=== PATIENT | male | born 1955 | race Caucasian/White ===

== ENCOUNTER → 2016-06-21 | Day surgery (SDC) | payer BC ==
[~2016-06-21] MED LIST: ACETAMINOPHEN/HYDROcodone 325 MG/5 MG TAB ONE; BUPIVACAINE/EPINEPHRINE 0.5% PF 30 ML VIAL ONE; BUPR-197 PO; DIPH1TAB36 PO; HYDR-3580 PO; KETOROLAC TROMETHAMINE 30 MG/ML (IVP) VIAL IV PUSH ONE; LACTATED RINGER'S 1000 ML INJ 1,000 ML ONE; MELA3CAP2 PO; MIDAZOLAM HCL 2 MG/2 ML VIAL ONE; NITR.4 SL; ONDANSETRON HCL 4 MG/2 ML VIAL IV PUSH ONE; PROPOFOL 200 MG/20 ML AMP IV ONE; PROT40TA PO; ST J81CH PO; [UNRECOGNIZED DRUG - OTHER] PO; ceFAZolin 2 GM PREMIX 50 ML ONE
--- NOTE | 2016-06-25 15:14 | MP ---
cc: FROILAN PADRON M.D. DATE OF SURGERY: 06/21/2016 PREOPERATIVE DIAGNOSIS Right knee medial meniscus tear. POSTOPERATIVE DIAGNOSIS Right knee medial meniscus tear. PROCEDURE Right knee arthroscopic partial medial meniscectomy. ANESTHESIA General. SURGEON Froilan Padron MD ESTIMATED BLOOD LOSS Minimal. COMPLICATIONS None known. INDICATION Mahendra Mello is a 61-year-old male with persistent medial sided knee pain to his right knee which has failed to respond to conservative measures. He had MRI scan which shows a complex tear of the medial meniscus as well as chondromalacia. He now presents for arthroscopic surgery. Risks, benefits were thoroughly discussed and no guarantees were made. PROCEDURE After general anesthesia the right lower extremity was draped and prepped in the usual sterile fashion. IV antibiotics were given. Time-out was completed. Inferolateral portal was made. Blunt trocar was used to introduce the cannula. The knee insufflated with saline. Patellofemoral joint was visualized and appeared normal. Notch appeared normal, normal-appearing ACL. The lateral compartment showed normal appearance of the lateral meniscus and lateral femoral condyle. Medial compartment showed chondromalacia of weightbearing portion of medial femoral condyle and a complex unstable tear involving the posterior horn and the medial meniscus representing probably 60-70% of the depth of the meniscus with the apex of the tear being at the mid posterior horn but also significant involvement all the way to the midbody of the medial meniscus where a portion of the meniscus was flipped inferiorly along the joint line. We proceeded with arthroscopic partial medial meniscectomy with basket forceps, arthroscopic shaver. There was also noted to be some slight amount of fraying on the medial edge of his ACL and this was trimmed and electrocautery was used. We smoothed the medial femoral condyle with the shaver turned 90 degrees to the face of the condyle and follow-up photograph shows the results. It should be noted that we switched over a switching stick and came in from the opposite angle, smoothed and fine-tuned and make the transition from the anterior horn to the body of the posterior horn and removed the unstable undersurface fibers at the midbody. Repeat diagnostic arthroscopy revealed no loose bodies. The arthroscopic equipment was removed. Marcaine had been injected about the portals. Steri-Strips were applied. Sterile dressing was applied. Kingsley wrap was applied. The patient was awoken and returned to the recovery room in stable condition. MD DIEGO Sheikh/BERNA /11:23 AM /3:05 PM
== END | disposition home or self-care (01) ==
LOC: ESDC 08:51
PROVIDERS: ATTEND Orthopaedic Surgery Sports Medicine
DX: S83.231A Complex tear of medial meniscus, current injury, right knee, initial encounter (principal)
CPT/HCPCS: 01400; 29881; J0690; J1885; J2250; J2405; J3010; J7120

== ENCOUNTER 2017-06-30 20:01 | Observation (INO) | payer BC ==
[~2017-06-30] VITALS: Ht 180.3 cm; Wt 96.0 kg
[~2017-06-30 20:01] MED LIST changes: -ACETAMINOPHEN/HYDROcodone 325 MG/5 MG TAB ONE; +ASPI81TA23 PO; +ATOR80TA45 PO; -BUPIVACAINE/EPINEPHRINE 0.5% PF 30 ML VIAL ONE; -BUPR-197 PO; +BUPR150CR PO; +CENTCHW4 CHEW; -DIPH1TAB36 PO; -HYDR-3580 PO; -KETOROLAC TROMETHAMINE 30 MG/ML (IVP) VIAL IV PUSH ONE; -LACTATED RINGER'S 1000 ML INJ 1,000 ML ONE; +LYSI500T PO; +MAGN500T5 PO; +MEDR4PAK PO; +MELA1TAB18 PO; -MELA3CAP2 PO; -MIDAZOLAM HCL 2 MG/2 ML VIAL ONE; +NAPR220C22 P-ARTICULR; -NITR.4 SL; -ONDANSETRON HCL 4 MG/2 ML VIAL IV PUSH ONE; -PROPOFOL 200 MG/20 ML AMP IV ONE; -PROT40TA PO; -ST J81CH PO; +TEMA30CA PO; -[UNRECOGNIZED DRUG - OTHER] PO; -ceFAZolin 2 GM PREMIX 50 ML ONE
[2017-06-30 23:30] VITALS: BP 129/81; PULSE 71; RESP 17; TEMP 98.2; O2SAT 97
[2017-07-01 00:49] LABS: TROPONIN I LESS THAN 0.02 NG/ML (0.02-0.05)
[2017-07-01] MEDS ORDERED: ACETAMINOPHEN 500 MG CPLT PO PRN (01:00)
[2017-07-01] MEDS ORDERED: ONDANSETRON HCL 4 MG/2 ML VIAL IV PUSH PRN (01:00)
[2017-07-01 01:50] VITALS: BP 120/68; PULSE 65; RESP 18; TEMP 98.2; O2SAT 95
[2017-07-01 02:07] VITALS: PULSE 64
[2017-07-01 04:33] VITALS: BP 120/75; PULSE 67; RESP 16; TEMP 98; O2SAT 96
[2017-07-01 07:09] VITALS: BP 110/78; PULSE 61; RESP 16; TEMP 97.8; O2SAT 97
[2017-07-01 07:30] VITALS: PULSE 66
[2017-07-01] MEDS ORDERED: ASPIRIN 325 MG TAB PO SCH (09:00)
[2017-07-01] MEDS ORDERED: TEMAZEPAM 15 MG CAP PO PRN (09:00)
[2017-07-01] MEDS ORDERED: buPROPion HCL 150 MG SUSTAINED RELEASE TAB PO SCH (09:00)
--- NOTE | 2017-07-01 10:07 | HHI.HP ---
[facility] Primary Care Physician Eliot Smith MD Chief Complaint Chest pain History of Present Illness This is a 62-year-old male with history of CAD with a four-vessel bypass 2008 that presents to ED with a complaint of discomfort in his chest. Patient states he had an uncomfortable feeling that began Saturday evening. Describes as a dull pain. States that essentially has been there constantly. Still there. Worsened by nothing. Aleve did seem to help a little bit. Denies shortness of breath, nausea, or diaphoresis. Denies shortness of breath, nausea , or diaphoresis with the symptoms. He points to left lateral/lower chest wall to indicate where the discomfort is present. States he had a similar discomfort but a little bit lower a couple months ago and at that time he was told that he had diverticulitis. Cannot recall any recent stress testing. Upon reviewing records he had a nonischemic Lexiscan August 2013. He does not believe he has had one since. Last time he saw his interpreter Dr. Taylor was between 1-1/2-2 years ago. Voices compliance with his medications. States that the symptoms are not similar to the symptoms he had when needing bypass. At that time he states he had heartburn symptoms and was very fatigued. Review of Systems General: Patient denies fevers, chills, and recent travel. HEENT: Patient denies headache, sore throat, difficulty swallowing. Cardiovascular: Has the chest discomfort as mentioned above. Denies sensation of heart beating rapidly or irregularly. No syncope. Denies diaphoresis. Respiratory: Denies shortness of breath or inspirational chest discomfort. Denies coughing wheezing or hemoptysis. GI: Patient denies nausea, vomiting, diarrhea, abdominal pain, bloody stools. Musculoskeletal: Patient denies joint pain or edema. Denies calf pain or edema. Neurovascular: Patient denies numbness, tingling, weakness in extremities. Denies headache. Endocrine: Denies polyuria and polydipsia. Hematologic: Denies easy bruising. Skin: Denies rash or itching. Past Family Social History Allergies: Coded Allergies: No Known Allergies (Verified Allergy, Unknown, 07/01/17) Past Medical History CAD with a four-vessel bypass 2008. Hyperlipidemia, depression, ischemic cardiomyopathy, diverticulitis 2 months ago. Denies diabetes and hypertension. Past Surgical History Four-vessel bypass 2008. Mandibular surgery. Appendectomy. Reported Medications Reported Meds & Active Scripts Active Reported Aleve (Naproxen Sodium) 220 Mg Capsule 220 Mg P-ARTICULR PRN Melatonin 10 Mg-1 Mg Tab 10 Mg PO HS PRN Aspirin EC (Aspirin) 81 Mg Tabdr 81 Mg PO DAILY Centrum (Multiple Vitamins W/ Minerals) 1 Chew 1 Tab CHEW DAILY Magnesium Gluconate 27 Mg (500 Mg) Tab 500 Mg PO DAILY l-Lysine (Lysine HCl) 500 Mg Tab 1,000 Mg PO QOD Temazepam 30 Mg Cap 30 Mg PO HS PRN Wellbutrin SR 12 HR (Bupropion HCl) 150 Mg Tab 150 Mg PO Q12HR Atorvastatin (Atorvastatin Calcium) 80 Mg Tab 80 Mg PO HS Active Ordered Medications Current Medications Medications (Trade) Dose Ordered Sig/Jacinto Route Start Time Stop Time Status Last Admin (Tylenol) 500 mg Q4H PRN PO 07/01/17 01:00 (Zofran Inj) 4 mg Q6H PRN IV PUSH 07/01/17 01:00 (Lipitor) 80 mg HS PO 07/01/17 21:00 (Wellbutrin Sr) 150 mg Q12HR PO 07/01/17 09:00 07/01/17 09:06 (Restoril) 30 mg HS PRN PO 07/01/17 09:00 (Aspirin) 325 mg DAILY PO 07/01/17 09:00 07/01/17 09:05 Family History Both sisters have had a CABG. His parents had CAD as well. Physical Exam Vital Signs Vital Signs Date Time Temp Pulse Resp B/P (MAP) Pulse Ox O2 Delivery O2 Flow Rate FiO2 07/01/17 07:30 66 07/01/17 07:09 97.8 61 16 110/78 (89) 97 07/01/17 04:33 98.0 67 16 120/75 (90) 96 07/01/17 02:07 64 07/01/17 01:50 98.2 65 18 120/68 (85) 95 06/30/17 23:30 98.2 71 17 129/81 (97) 97 Physical Exam GENERAL: This is a well-nourished, well-developed patient, in no apparent distress. Patient speaks in clear complete sentences. Patient is pleasant. HEENT: Head is atraumatic and normocephalic. Neck is supple without lymphadenopathy and trachea is midline. No JVD or carotid bruits. CARDIOVASCULAR: Regular rate and rhythm without murmurs, gallops, or rubs. RESPIRATORY: Clear to auscultation. Breath sounds equal bilaterally. No wheezes , rales, or rhonchi. Chest wall is nontender. Well-healed scar over sternum from prior sternotomy. No use of accessory muscles. GASTROINTESTINAL: Abdomen is nontender, nondistended. Abdomen soft. No obvious pulsatile mass or bruit. No CVA tenderness. Strong femoral pulses bilaterally. Normal bowel sounds in all quadrants. MUSCULOSKELETAL: Patient is moving upper and lower extremities freely. No calf tenderness or edema, no Homans sign. Strong pulses in upper and lower extremities. NEUROLOGICAL: Patient is alert and oriented. Cranial nerves 2-12 are grossly intact. No focal deficits and speech is clear. SKIN: No rash and turgor is normal. Laboratory Laboratory Tests Test 07/01/17 00:15 Total Creatine Kinase 325 Creatine Kinase MB 2.5 Creatine Kinase MB % 0.8 Troponin I LESS THAN 0.02 Imaging Chest x-ray reveals nothing acute. There is evidence of prior sternotomy with sternal wires present. Course EKGs are sinus rhythm with nonspecific T-wave changes. No significant ST segment depressions or elevations. Caprini VTE Risk Assessment Caprini VTE Risk Assessment: Mod/High Risk (score >= 2) Caprini Risk Assessment Model Point Value = 1 Point Value = 2 Point Value = 3 Point Value = 5 Age 41-60 Minor surgery BMI > 25 kg/m2 Swollen legs Varicose veins or History of unexplained or recurrent spontaneous Oral contraceptives or hormone replacement Sepsis (< 1 month) Serious lung disease, including pneumonia (< 1 month) Abnormal pulmonary function Acute myocardial infarction Congestive heart failure (< 1 month) History of inflammatory bowel disease Medical patient at bed rest Age 61-74 Arthroscopic surgery Major open surgery (> 45 min) Laparoscopic surgery (> 45 min) Malignancy Confined to bed (> 72 hours) Immobilizing plaster cast Central venous access Age >= 75 History of VTE Family history of VTE Factor V Leiden Prothrombin [id number] Lupus anticoagulant Anticardiolipin antibodies Elevated serum homocysteine Heparin-induced thrombocytopenia Other congenital or acquired thrombophilia Stroke (< 1 month) Elective arthroplasty Hip, pelvis, or leg fracture Acute spinal cord injury (< 1 month) Prophylaxis Regimen Total Risk Factor Score Risk Level Prophylaxis Regimen 0-1 Low Early ambulation 2 Moderate Order ONE of the following: *Sequential Compression Device (SCD) *Heparin 5000 units SQ BID 3-4 Higher Order ONE of the following medications: *Heparin 5000 units SQ TID *Enoxaparin/Lovenox 40 mg SQ daily (WT < 150 kg, CrCl > 30 mL/min) *Enoxaparin/Lovenox 30 mg SQ daily (WT < 150 kg, CrCl > 10-29 mL/min) *Enoxaparin/Lovenox 30 mg SQ BID (WT < 150 kg, CrCl > 30 mL/min) AND/OR *Sequential Compression Device (SCD) 5 or more Highest Order ONE of the following medications: *Heparin 5000 units SQ TID (Preferred with Epidurals) *Enoxaparin/Lovenox 40 mg SQ daily (WT < 150 kg, CrCl > 30 mL/min) *Enoxaparin/Lovenox 30 mg SQ daily (WT < 150 kg, CrCl > 10-29 mL/min) *Enoxaparin/Lovenox 30 mg SQ BID (WT < 150 kg, CrCl > 30 mL/min) AND *Sequential Compression Device (SCD) Assessment and Plan Assessment and Plan * Chest pain: Patient has had serial cardiac enzymes and EKGs for ruling out purposes. He was seen by Dr. Rustam Carpenter of cardiology in the chest pain center. He has had no recent stress testing, patient will have a Lexiscan at this time and will be discharged home with a stress test is nonischemic with instructions to follow-up with his interpreter. He will notify his interpreter if stress test is ischemic. Patient to follow-up with his interpreter and PCP. Return to ED for interval issues. * CAD: We will reassess with stress testing. * Hyperlipidemia: Resume medication. He wants time. He is agreeable to this plan. Travon Salas Jul 01, 2017 10:07
[2017-07-01] MEDS ORDERED: REGADENOSON INJ 0.4 MG/5 ML SYR ONE (10:24)
[2017-07-01 12:33] VITALS: BP 127/70; PULSE 64; RESP 16; TEMP 96.8; O2SAT 98
--- NOTE | 2017-07-01 14:00 | RADRPT ---
EXAM DATE/TIME: 07/01/2017 10:15 [place] COMPARISON: No previous studies available for comparison. INDICATIONS : Chest pain. Angina. DOSE: 27.3 mCi Tc99m Myoview at stress. 8.7 mCi Tc99m Myoview at rest. 0.4 mg Lexiscan STRESS SYMPTOMS: Dyspnea and warmness. EJECTION FRACTION: 28% MEDICAL HISTORY : Myocardial infarction. Hypercholesterolemia. Hypertension. SURGICAL HISTORY : Appendectomy. CABG ENCOUNTER: Initial ACUITY: 1 day PAIN SCALE: 6/10 LOCATION: chest TECHNIQUE: The patient underwent pharmacologic stress with infusion of prescribed dose. Continuous ECG tracing was monitored during stress. Gated SPECT imaging was performed after stress and conventional SPECT i maging was performed at rest. The examination was performed on a SPECT/CT scanner, both attenuation and non-corrected datasets were reviewed. FINDINGS: The gated cineloop images demonstrate global hypokinesis as well as septal and apical akinesis. Left ventricular ejection fraction is calculated at 28%. Large fixed defects involve the anterior wall, se ptum, apex and lateral wall consistent with infarct in the LAD and LCx distributions. No reversible d efects to suggest ischemia are noted. CONCLUSION: 1. Large fixed defects involve the anterior wall, septum, apex and lateral wall consistent with infar ct in the LAD and LCx distributions. 2. Global hypokinesis as well as septal and apical akinesis. 3. Left ventricular ejection fraction equaling 28%. 4. No reversible defects to suggest ischemia. RISK CATEGORY: High risk (greater than 3% annual mortality rate). Angelito Byrd MD on July 01, 2017 at 13:54 Board Certified Radiologist. This report was verified electronically.
--- NOTE | 2017-07-01 14:32 | HHI.DCPOC ---
Discharge Care Plan Diagnosis: (1) Chest pain (2) CAD (coronary artery disease) (3) Hx of CABG (4) Cardiomyopathy (5) Hyperlipidemia Goals to Promote Your Health DISCUSS YOUR CARDIOMYOPATHY WITH YOUR STEEL SAMPLER. TAKING AN ANGELA INHIBITOR ( TYPE OF LOOD PRESSURE MEDICINE) MIGHT BENEFIT YOU. * To prevent worsening of your condition and complications * To maintain your health at the optimal level Directions to Meet Your Goals Take your medications as prescribed Follow your dietary instruction Follow activity as directed Keep your appointments as scheduled Take your immunizations and boosters as scheduled If your symptoms worsen call your PCP, if no PCP go to Urgent Care Center or Emergency Room Smoking is Dangerous to Your Health. Avoid second hand smoke Call the 24-hour hour crisis hotline for domestic abuse at Travon Salas Jul 01, 2017 14:32
--- NOTE | 2017-07-01 15:39 | EKG ---
Date Performed: 07/01/2017 Time Performed: 03:13:03 PTAGE: 62 years EKG: Sinus rhythm POSSIBLE RIGHT VENTRICULAR CONDUCTION DELAY ABNORMAL ECG PREVIOUS TRACING : 10/27/2013 18.52 Since previous tracing, no significant change noted DOCTOR: Rustam Carpenter Interpretating Date/Time 07/01/2017 15:38:36
--- NOTE | 2017-07-01 15:40 | EKG ---
Date Performed: 06/30/2017 Time Performed: 23:37:22 PTAGE: 62 years EKG: Sinus rhythm SEPTAL MYOCARDIAL INFARCTION ABNORMAL ECG INTERPRETATION BASED ON A DEFAULT AGE OF 40 YEARS NO PREVIOUS TRACING DOCTOR: Rustam Carpenter Interpretating Date/Time 07/01/2017 15:39:40
--- NOTE | 2017-07-01 15:44 | TR ---
Date Performed: 07/01/2017 Time Performed: 10:42:21 DOCTOR: Rustam Carpenter DRUG LIST: CLINICAL HISTORY: REASON FOR TEST: REASON FOR ENDING: OBSERVATION: CONCLUSION: COMMENTS: Patient exercised using the Eliot protocol. No electrocardiographic changes were seen to suggest ischemia. Hemodynamic response to exercise was normal. No significant arrhythmia was prese nt.
[2017-07-01] MEDS ORDERED: ATORVASTATIN 80 MG TAB PO SCH (21:00)
== END 2017-07-01 15:04 | disposition home or self-care (01) ==
LOC: NEDDLT 22:14 → NEPGCP 22:24
DX: R07.89 Other chest pain (principal); E78.5 Hyperlipidemia, unspecified; K57.92 Diverticulitis of intestine, part unspecified, without perforation or abscess without bleeding; R12 Heartburn; R53.83 Other fatigue; R94.31 Abnormal electrocardiogram [ECG] [EKG]; Z95.1 Presence of aortocoronary bypass graft
CPT/HCPCS: 71046; 78452; 80053; 82550; 82552; 83735; 84484; 85025; 85610; 85730; 93005; 93017; 99285; A9502; G0378; J2785